=== PATIENT | female | born 1960 | race Caucasian/White ===

== ENCOUNTER 2016-11-28 08:30 | Day surgery (SDC) | payer OTHER ==
[~2016-11-28 08:30] MED LIST: LIDOCAINE W/ SODIUM BICARB 0.5 ML SYR ONE; Lactated Ringers 1,000 ML PRIMARY IV ONE; MIDAZOLAM 5 MG/1 ML ONE
[2016-11-28 09:50] VITALS: RESP 14; TEMP 97.6
--- NOTE | 2016-11-28 09:53 | GEN.OPNOTE ---
Colonoscopy Procedure Note Surgery Date: 11/28/16 Preoperative Diagnosis: Colon cancer screening Postoperative Diagnosis: Colon cancer screening. Polyp at 40 cm Procedure: Colonoscopy with ablation of polyp by snare Anesthesia Provider: Jude Aguilera CRNA Anesthesia Type: MAC Indications: Colon cancer screening Findings: Prep : Excellent Cecum : Scope advanced all way to the cecum. Patient did have a tortuous colon. Ileocecal valve clearly identified. Patient normal. Cecum Ascending : Ascending colon within normal limits Transverse : Transverse colon free from disease Sigmoid : Descending colon free from disease small sessile polyp seen in the sigmoid colon easily removed with snare. Polyp was at 40 cm Rectum : Rectum free from disease Digital Rectal Exam : A lubricated flexible colonoscope was inserted and passed to the blind end of the cecum. Additional Details: Follow-up colonoscopy in 5 years
== END 2016-11-28 09:59 | disposition home or self-care (01) ==
LOC: SDSC 08:30
PROVIDERS: ATTEND Surgery
DX: Z12.11 Encounter for screening for malignant neoplasm of colon (principal); K63.5 Polyp of colon
CPT/HCPCS: 45385; J2250; J2704; J7120